=== PATIENT | male | born 1985 ===

== ENCOUNTER 2020-10-16 10:20 | Emergency (ER) | payer OTHER ==
[2020-10-16] MEDS ORDERED: ONDANSETRON HCL INJ/PF 4 MG/2 ML SDV IV ONE (11:01)
[2020-10-16] MEDS ORDERED: NORMAL SALINE 1000 ML 1,000 ML IV ONE (11:01)
--- NOTE | 2020-10-16 11:01 | ER Document Report ---
ED Medical Screen (RME) - General Chief Complaint: Shortness Of Breath Stated Complaint: BREATHING DIFFICULTY/COVID + Time Seen by Provider: 10/16/20 10:47 Primary Care Provider: SHAHNAZ RITTER MD [Primary Care Provider] - Follow up as needed - HPI Notes: 10/16/20 10:56 34-year-old male with a history of hypertension,back fusions, IBS PTSD, anxiety, depression and dx with COVID x 2 weeks ago presents to the ER for complaints of SOB, substernal chest pain x 2w that has become progressively worse over last day as well as RLQ abd pain. Reports that right lower quadrant abdominal pain is different than the pain he is experienced with his IBS. states RLQ abd pain comes and goes, reports some nausea, no vomiting. Reports his last bowel movement was yesterday, denies melena. patient reports that his chest pain is constant, does radiate to his back. He reports last night with coughing he did notice specks of dark red blood, which made him nervous. Denies any clotting disorders. Patient does smoke roughly 1/2 a pack a week. Denies any headaches, vision changes, weakness in arms or legs, arms and legs. I have greeted and performed a rapid initial assessment of this patient. A comprehensive ED assessment and evaluation of the patient, analysis of test results and completion of the medical decision making process will be conducted by additional ED providers. PHYSICAL EXAMINATION: GENERAL: Well-appearing, well-nourished and in no acute distress. NECK: Normal range of motion CV: s1, s2 regular LUNGS: Diminished breath sounds throughout abd: RLQ abdominal tenderness on palpation, no rebound pain, negative mcburneys sign. no cva tenderness bilaterally The patient was evaluated during a global COVID-19 pandemic and that diagnosis was suspected/considered upon their initial presentation. Their evaluation, treatment and testing was consistent with current guidelines for patients who present with complaints or symptoms and may be related to COVID-19. - Related Data Allergies/Adverse Reactions: No Known Allergies Allergy (Verified 01/27/13 11:16) Past Medical History - Past Medical History Cardiac Medical History: Denies: Hx Coronary Artery Disease, Hx Heart Attack, Hx Hypertension Pulmonary Medical History: Denies: Hx Asthma, Hx Bronchitis, Hx COPD, Hx Pneumonia Neurological Medical History: Denies: Hx Cerebrovascular Accident, Hx Seizures Musculoskeltal Medical History: Denies Hx Arthritis - Immunizations Hx Diphtheria, Pertussis, Tetanus Vaccination: Yes Physical Exam - Vital signs Vitals: Temp Pulse BP Pulse Ox 98.0 F 93 142/87 H 95 10/16/20 10:41 10/16/20 10:41 10/16/20 10:41 10/16/20 10:41 Course - Vital Signs Vital signs: Temp Pulse Resp BP Pulse Ox 98.0 F 93 142/87 H 95 10/16/20 10:41 10/16/20 10:41 10/16/20 10:41 10/16/20 10:41 Doctor's Discharge - Discharge Referrals: SHAHNAZ RITTER MD [Primary Care Provider] - Follow up as needed
--- NOTE | 2020-10-16 11:19 | RADIOLOGY REPORT (SQ) ---
EXAM DESCRIPTION: CHEST SINGLE VIEW IMAGES COMPLETED DATE/TIME: 10/16/2020 11:10 am REASON FOR STUDY: sob with cp x 2w, worse in last 1 day, hx covid COMPARISON: None. EXAM PARAMETERS: NUMBER OF VIEWS: One view. TECHNIQUE: Single frontal radiographic view of the chest acquired. RADIATION DOSE: NA LIMITATIONS: None. FINDINGS: LUNGS AND PLEURA: No opacities, masses or pneumothorax. No pleural effusion. MEDIASTINUM AND HILAR STRUCTURES: No masses. Contour normal. HEART AND VASCULAR STRUCTURES: Heart normal in size. Normal vasculature. BONES: No acute findings. HARDWARE: None in the chest. OTHER: No other significant finding. IMPRESSION: NO ACUTE RADIOGRAPHIC FINDING IN THE CHEST. TECHNICAL DOCUMENTATION: JOB ID: [id number] 2010 [employer]- All Rights Reserved Reading location - IP/workstation name: [email or web address]
[2020-10-16 11:41] LABS: ABSOLUTE BASOPHILS # (AUTO) 0.1 10^3/uL (0.0-0.2); ABSOLUTE EOSINOPHILS # (AUTO) 0.2 10^3/uL (0.0-0.6); ABSOLUTE LYMPHOCYTES (AUTO) 1.6 10^3/uL (0.5-4.7); ABSOLUTE MONOCYTES (AUTO) 0.8 10^3/uL (0.1-1.4); ABSOLUTE NEUT (AUTO) 6.1 10^3/uL (1.7-8.2); BASOPHILS % (AUTO) 0.9 % (0-2); EOSINOPHILS % (AUTO) 2.8 % (0-6); HEMATOCRIT 45.8 % (37.9-51.0); HEMOGLOBIN 15.8 g/dL (13.5-17.0); MEAN CORPUSCULAR HEMOGLOBIN 29.1 pg (27.0-33.4); MEAN CORPUSCULAR HGB CONC 34.6 g/dL (32.0-36.0); MEAN CORPUSCULAR VOLUME 84 fl (80-97); MONOCYTES % (AUTO) 8.7 % (3-13); PLATELET COUNT 206 10^3/uL (150-450); RED BLOOD COUNT 5.44 10^6/uL (4.35-5.55); RED CELL DISTRIBUTION WIDTH 13.7 % (11.5-14.0); SEGMENTED NEUTROPHILS % (AUTO) 69.6 % (42-78); TOTAL CELLS COUNTED % (AUTO) 100 %; WHITE BLOOD COUNT 8.8 10^3/uL (4.0-10.5)
--- NOTE | 2020-10-16 11:45 | ER Document Report ---
ED General - General Chief Complaint: Shortness Of Breath Stated Complaint: BREATHING DIFFICULTY/COVID + Time Seen by Provider: 10/16/20 10:47 Primary Care Provider: SHAHNAZ RITTER MD [EMERITUS] - Follow up as needed Notes: CHIEF COMPLAINT: Multiple complaints HPI: 34-year-old male presenting with multiple complaints. Diagnosed Covid +2 weeks ago with upper respiratory symptoms including loss of taste and smell, m ildly productive cough and shortness of breath. Patient states his symptoms have not improved. He treated symptomatically at home. Patient reports some hemoptysis overnight last night. He reports onset of right lower quadrant abdominal pain yesterday. Has history of IBS states this does not feel similar. No definite fevers. Does report continued mild shortness of breath with coughing episodes only as well as generalized body ache ROS: See HPI - all other systems were reviewed and are otherwise negative Constitutional: no fever Eyes: no drainage, no blurred vision ENT: no runny nose, no sore throat Cardiovascular: no chest pain Resp: + SOB,+ cough GI: no vomiting, no diarrhea, + abdominal pain : no dysuria Integumentary: no rash Allergy: no hives Musculoskeletal: no extremity pain or swelling Neurological: no numbness/tingling, no weakness MEDICATIONS: I agree with the patient medications as charted by the RN. ALLERGIES: I agree with the allergies as charted by the RN. PAST MEDICAL HISTORY/PAST SURGICAL HISTORY: Reviewed and agree as charted by RN. SOCIAL HISTORY: Reviewed and agree as charted by RN. FAMILY HISTORY: No significant familial comorbid conditions directly related to patient complaint EXAM: Reviewed vital signs as charted by RN. CONSTITUTIONAL: Alert and oriented and responds appropriately to questions. Well-appearing; well-nourished HEAD: Normocephalic; atraumatic EYES: PERRL; Conjunctivae clear, sclerae non-icteric ENT: normal nose; no rhinorrhea; moist mucous membranes; pharynx without lesions noted, no uvula edema or deviation, no tonsillar hypertrophy, phonation normal NECK: Supple without meningismus; non-tender; no cervical lymphadenopathy, no masses CARD: RRR; no murmurs, no clicks, no rubs, no gallops; symmetric distal pulses RESP: Normal chest excursion without splinting or tachypnea; breath sounds clear and equal bilaterally; no wheezes, no rhonchi, no rales, pulse oximetry 96% on room air not hypoxic ABD/GI: Normal bowel sounds; non-distended; soft, patient tender in the right lower quadrant on palpation, no rebound, no guarding; no palpable organomegaly or masses. BACK: The back appears normal and is non-tender to palpation, there is no CVA tenderness EXT: Normal ROM in all joints; non-tender to palpation; no cyanosis, no effusions, no edema SKIN: Normal color for age and race; warm; dry; good turgor; no acute lesions noted NEURO: Moves all extremities equally; Motor and sensory function intact PSYCH: The patient's mood and manner are appropriate. Grooming and personal hygiene are appropriate. MDM: 34-year-old male Covid +2 weeks ago no improvement in his symptoms after 2 weeks reported several specks of blood in sputum from coughing overnight last night. Chest x-ray negative for acute findings. Abdomen pelvis CT put in via triage process secondary to right lower quadrant pain rule out appendicitis he has prior history of cholecystectomy. Given patient's hemoptysis, Covid diagnosis no feeling of improvement in his symptoms will obtain CTA of the chest to evaluate for PE or pneumonia as well The patient was evaluated during the global COVID-19 pandemic and that diagnosis was suspected/considered upon their initial presentation. Their evaluation, treatment and testing was consistent with current guidelines for patients who present with complaints or symptoms that may be related to COVID-19 - Related Data Allergies/Adverse Reactions: No Known Allergies Allergy (Verified 10/16/20 11:33) Past Medical History - Social History Smoking Status: Current Every Day Smoker Family History: Reviewed & Not Pertinent - Past Medical History Cardiac Medical History: Reports: Hx Hypertension Denies: Hx Coronary Artery Disease, Hx Heart Attack Pulmonary Medical History: Denies: Hx Asthma, Hx Bronchitis, Hx COPD, Hx Pneumonia Neurological Medical History: Denies: Hx Cerebrovascular Accident, Hx Seizures Musculoskeletal Medical History: Denies Hx Arthritis - Immunizations Hx Diphtheria, Pertussis, Tetanus Vaccination: Yes Physical Exam - Vital signs Vitals: Temp Pulse BP Pulse Ox 98.0 F 93 142/87 H 95 10/16/20 10:41 10/16/20 10:41 10/16/20 10:41 10/16/20 10:41 Course - Re-evaluation Re-evalutation: 10/16/20 15:21 CT of the chest and abdomen do not reveal acute emergent abnormalities. Urine is clean. No symptoms of urinary infection. He likely has symptoms related to his Covid infection. Symptomatic treatment Bentyl for abdominal pain, albuterol for cough, anti-inflammatories, PCP follow-up - Vital Signs Vital signs: Temp Pulse Resp BP Pulse Ox 98.0 F 93 142/87 H 95 10/16/20 10:41 10/16/20 10:41 10/16/20 10:41 10/16/20 10:41 - Laboratory Results Result Diagrams: 10/16/20 11:20 10/16/20 11:20 Laboratory Results Interpreted: 10/16/20 11:20 Glucose 118 H Critical Laboratory Results Reviewed: No Critical Results - Radiology Results Critical Radiology Results Reviewed: No Critical Results Discharge - Discharge Clinical Impression: Cough, Hemoptysis Abdominal pain Qualifiers: Abdominal location: right lower quadrant Qualified Code(s): R10.31 - Right lower quadrant pain Condition: Stable Disposition: HOME, SELF-CARE Additional Instructions: Your imaging studies did not show acute findings, your symptoms are likely related to your recent COVID-19 infection. Take the Bentyl for abdominal pain or spasm. Take Tessalon Perles to help with cough and use the albuterol inhaler 2 puffs every 4 hours as needed to help with cough and spasm. Follow-up with your primary care provider for reevaluation of your symptoms call for appointment Prescriptions: Benzonatate [Tessalon Perles 100 mg Capsule] 100 mg PO Q8HP PRN #40 capsule PRN Reason: Dicyclomine HCl [Bentyl 20 mg Tablet] 20 mg PO Q6H PRN #20 tablet PRN Reason: Albuterol Sulfate [Proair HFA Inhalation Aerosol 8.5 gm MDI] 2 puff IH Q4H PRN #1 mdi PRN Reason: Referrals: SHAHNAZ RITTER MD [EMERITUS] - Follow up as needed
[2020-10-16 11:58] LABS: ALBUMIN 4.4 g/dL (3.5-5.0); ALKALINE PHOSPHATASE 72 U/L (38-126); ANION GAP 10 (5-19); ASPARTATE AMINO TRANSFERASE 32 U/L (17-59); BILIRUBIN,DIRECT 0.2 mg/dL (0.0-0.4); BILIRUBIN,TOTAL 0.6 mg/dL (0.2-1.3); BLOOD UREA NITROGEN 11 mg/dL (7-20); CALCIUM 9.8 mg/dL (8.4-10.2); CARBON DIOXIDE 28 mmol/L (22-30); CHLORIDE 102 mmol/L (98-107); GLUCOSE 118 mg/dL (75-110); POTASSIUM 4.2 mmol/L (3.6-5.0); TOTAL PROTEIN 7.5 g/dL (6.3-8.2)
--- NOTE | 2020-10-16 14:19 | RADIOLOGY REPORT (SQ) ---
EXAM DESCRIPTION: CT ABD/PELVIS WITH IV ORAL; CTA CHEST IMAGES COMPLETED DATE/TIME: 10/16/2020 10:58 am REASON FOR STUDY: RLQ abd pain x 2d, intermittent pain; hemoptysis, + covid COMPARISON: Single-view chest same date TECHNIQUE: CT scan of the chest, abdomen, and pelvis performed using helical scanning technique with dynamic intravenous contrast injection. Images reviewed with lung, soft tissue and bone windows. R econstructed coronal and sagittal MPR images reviewed. Delayed images of the abdomen and pelvis were also obtained. Additional 3 dimensional post-processing performed to develop Maximal Intensity Projection images ([place] P). All images stored on PACS. All CT scanners at this facility use dose modulation, iterative reconstruction, and/or weight based d osing when appropriate to reduce radiation dose to as low as reasonably achievable (ALARA). [facility]: Dose Right [facility]: CareDose [facility]: Dose Right [facility]: Teradose 4D [facility]: Grivy CONTRAST TYPE AND DOSE: contrast/concentration: Isovue 350.00 mmol/ml; Total Contrast Delivered: 99. 0 ml; Total Saline Delivered: 43.5 ml Contrast bolus adequate for pulmonary arteries and aorta. RENAL FUNCTION: Creatinine 0.8 RADIATION DOSE: CT Rad equipment meets quality standard of care and radiation dose reduction techniq ues were employed. CTDIvol: NaN - NaN mGy. DLP: 0 mGy-cm. . LIMITATIONS: None. FINDINGS: CHEST: LUNGS AND PLEURA: No significant suspicious opacities or consolidation. No suspicious pulmonary nodu le identified. No pleural effusion or thickening. No pneumothorax. AORTA AND GREAT VESSELS: No aneurysm. No dissection. HEART: No pericardial effusion. No significant coronary artery calcifications. PULMONARY ARTERIES: No filling defects within the main, right or left pulmonary arteries. No filling defects within the lobar, visualized segmental or subsegmental pulmonary arteries. HILAR AND MEDIASTINAL STRUCTURES: No identified masses or abnormal nodes. HARDWARE: None in the chest. THYROID AND OTHER SOFT TISSUES: No masses. No adenopathy. BONES: No acute or significant finding. 3D MIPS: Confirm above findings. OTHER: No other significant finding. ABDOMEN AND PELVIS: LIVER: Diffuse decreased density compatible with steatosis. No suspicious liver lesion identified. SPLEEN: Normal size. No focal lesions. PANCREAS: No masses. No significant calcifications. No adjacent inflammation or peripancreatic fluid collections. Pancreatic duct not dilated. GALLBLADDER: Surgically absent. ADRENAL GLANDS: No significant masses or asymmetry. RIGHT KIDNEY AND URETER: No solid masses. No significant calcifications. No hydronephrosis or hyd roureter. LEFT KIDNEY AND URETER: No suspicious mass. Small hypodense lesion upper pole left kidney likely rep resenting a benign cyst. No significant calcifications. No hydronephrosis or hydroureter. AORTA AND VESSELS: No aneurysm. No dissection. Renal arteries, SMA, celiac without stenosis. RETROPERITONEUM: No retroperitoneal adenopathy, hemorrhage or masses. BOWEL AND PERITONEAL CAVITY: No masses or inflammatory changes. No free fluid or peritoneal masses. APPENDIX: Normal. PELVIS: Urinary bladder is underdistended with associated wall thickening. No mass lesion. No fluid collection. ABDOMINAL WALL: No masses. No hernias. BONES: Postsurgical changes related to posterior fixation at L5-S1. No destructive bone lesions. OTHER: No other significant finding. IMPRESSION: 1. No pulmonary embolism. No significant parenchymal opacities. 2. Bladder wall thickening may be due to underdistention. There is concern for cystitis, correlate with urinalysis. 3. No other acute abnormality on CT of the abdomen and pelvis. 4. Hepatic steatosis. COMMENT: Quality ID # [id number]: Final reports with documentation of one or more dose reduction techniques (e.g., Automated exposure control, adjustment of the mA and/or kV according to patient size, use of iterative reconstruction technique) TECHNICAL DOCUMENTATION: JOB ID: [id number] 2010 [employer]- All Rights Reserved Reading location - IP/workstation name: [email or web address]
[2020-10-16 15:00] LABS: APPEARANCE,URINE CLEAR; BILIRUBIN,URINE NEGATIVE (NEGATIVE); COLOR,URINE YELLOW; GLUCOSE, URINE NEGATIVE (NEGATIVE); KETONES,URINE NEGATIVE (NEGATIVE); LEUKOCYTE ESTERASE,URINE NEGATIVE (NEGATIVE); NITRITE,URINE NEGATIVE (NEGATIVE); PROTEIN,URINE NEGATIVE (NEGATIVE); URINE SPECIFIC GRAVITY 1.013; UROBILINOGEN,URINE NEGATIVE mg/dL (<2.0)
[2020-10-16 15:47] VITALS: BP 148/87
--- NOTE | 2020-10-16 18:48 | EKG REPORT ---
SEVERITY:- NORMAL ECG - SINUS RHYTHM : Confirmed by: Javed Cardenas MD 16-Oct-2020 18:46:29
== END 2020-10-16 15:48 | disposition home or self-care (01) ==
LOC: ER 10:20
DX: U07.1 COVID-19 (principal); R04.2 Hemoptysis; R10.31 Right lower quadrant pain; R10.813 Right lower quadrant abdominal tenderness; F17.200 Nicotine dependence, unspecified, uncomplicated; I10 Essential (primary) hypertension; Z87.19 Personal history of other diseases of the digestive system
CPT/HCPCS: 93005; 99285; 96361; 96374; 36415; 83690; 85025; 80053; 81001; 84484; 71045; 71275; 74177; 93010; J2405; J7030